=== PATIENT | female | born 1955 | race Caucasian/White ===

== ENCOUNTER 2016-06-15 15:50 | Emergency (ER) | payer OTHER ==
[~2016-06-15] VITALS: Ht 175.3 cm; Wt 113.6 kg
[2016-06-15 15:55] VITALS: TEMP 98.7
[2016-06-15] MEDS ORDERED: SYNTHROID0.088 MG/T PO (16:01)
[2016-06-15] MEDS ORDERED: ZESTRIL 10MG10 MG PO (16:02)
[2016-06-15] MEDS ORDERED: VITAMIN B COMPL1 T16 PO (16:03)
[2016-06-15] MEDS ORDERED: MULTI VITAMINS1 TAB PO (16:03)
[2016-06-15] MEDS ORDERED: FISH OIL 1000MG1 CAP PO (16:04)
[2016-06-15] MEDS ORDERED: ASPIRIN 81M81 MG/TA2 PO (16:04)
[2016-06-15] MEDS ORDERED: VITAMIN D31000 I1 PO (16:05)
[2016-06-15] MEDS ORDERED: CALCIUM/MAGNESI1 TAB (16:06)
[2016-06-15] MEDS ORDERED: MELATONIN5 M1 PO (16:07)
[2016-06-15] MEDS ORDERED: BENADRYL25 M2 PO (16:07)
[2016-06-15 17:00] LABS: BASO % 0.5 % (0.0-2.0); EOS # 0.3 (0.0-0.7); GRAN # 5.3 (1.4-6.5); GRAN % 60.1 % (42.2-75.2); HEMATOCRIT 43.8 % (37.0-47.0); HEMOGLOBIN 14.7 g/dl (12.5-16.0); LYMPH # 2.4 (1.2-3.4); LYMPH % 27.8 % (20.0-51.0); MEAN CELL VOLUME 93 fl (80.0-100.0); MEAN CORPUSCULAR HEMOGLOBIN 31 pg (27.0-31.0); MEAN CORPUSCULAR HGB CONC 34 g/dl (33.0-37.0); MEAN PLATELET VOLUME 10.9 fl (7.4-10.4); MONO # 0.7 (0.1-0.6); MONO % 8.3 % (1.7-9.3); PLATELET COUNT 220 K/mm3 (130-400); RED BLOOD COUNT 4.71 M/mm3 (4.10-5.30); REDCELL DISTRIBUTION WIDTH-CV 12.4 % (11.5-14.5); WHITE BLOOD COUNT 8.8 K/mm3 (4.8-10.8)
[2016-06-15 17:18] LABS: INR 1.1 (0.8-3.0); PARTIAL THROMBOPLASTIN TIME 31.9 SECONDS (26.0-37.0); PROTHROMBIN TIME 11.9 SECONDS (9.7-12.8)
[2016-06-15 17:48] LABS: ADJUSTED CALCIUM 9.6 mg/dL (8.4-10.2); ALANINE AMINOTRANSFERASE 57 U/L (9-52); ALBUMIN 4.7 gm/dL (3.5-5.0); ALKALINE PHOSPHATASE 67 U/L (50-136); ANION GAP 13 mmol/L (7-16); BILIRUBIN,TOTAL 0.8 mg/dL (0.0-1.0); BLOOD UREA NITROGEN 16 mg/dL (7-17); CALCIUM 10.2 mg/dL (8.4-10.2); CARBON DIOXIDE 30 mmol/L (22-30); CHLORIDE 98 mmol/L (98-107); CREATININE, serum 0.82 mg/dL (0.52-1.25); GLUCOSE 106 mg/dL (74-106); LIPASE 46 U/L (23-300); POTASSIUM 4.4 mmol/L (3.4-5.0); SODIUM 141 mmol/L (137-145); TOTAL PROTEIN 8.3 gm/dL (6.4-8.2)
[2016-06-15 18:00] LABS: B-TYPE NATRIURETIC PEPTIDE 33 pg/mL (0-125); TROPONIN-I < 0.012 ng/mL (0.000-0.034)
[2016-06-15 18:46] VITALS: BP 136/64; PULSE 66
== END 2016-06-15 19:06 | disposition home or self-care (01) ==
LOC: COL.ER 15:50
PROVIDERS: Emergency Medicine
DX: R07.9 Chest pain, unspecified (principal); I10 Essential (primary) hypertension

== ENCOUNTER → 2017-09-20 | Outpatient (CLI) | payer BC ==
[~2017-09-20] MED LIST: ASPIRIN 81M81 MG/TA2 PO; BENADRYL25 M2 PO; CALCIUM/MAGNESI1 TAB; FISH OIL 1000MG1 CAP PO; GLUCOPHAGE500 MG/TAB PO; LOPRESSOR 225 MG/TAB PO; MELATONIN5 M1 PO; MULTI VITAMINS1 TAB PO; SYNTHROID0.075 MG/T PO; SYNTHROID0.088 MG/T PO; VITAMIN B COMPL1 T16 PO; VITAMIN D31000 I1 PO; ZESTRIL 10MG10 MG PO
== END ==
LOC: MC.RAD 07:28
DX: R92.0 Mammographic microcalcification found on diagnostic imaging of breast (principal)

== ENCOUNTER 2017-09-22 08:45 | Day surgery (SDC) | payer BC ==
[2017-09-22] VITALS (9 sets, daily range): BP systolic 113–151; BP diastolic 60–86; PULSE 57–63; TEMP 97.5–97.8
[~2017-09-22] VITALS: Ht 175.4 cm; Wt 109.9 kg
[2017-09-22] MEDS ORDERED: ADVIL200 MG PO (09:44)
[2017-09-22] MEDS ORDERED: SALINE 45 ML45 ML NS (09:44)
[2017-09-22] MEDS ORDERED: [UNRECOGNIZED DRUG - OTHER] NAS (09:46)
[2017-09-22] MEDS ORDERED: [UNRECOGNIZED DRUG - OTHER] TOP (09:46)
[2017-09-22 09:47] LABS: HEMATOCRIT 45.1 % (37.0-47.0); HEMOGLOBIN 15.2 g/dl (12.5-16.0); MEAN CELL VOLUME 95 fl (80.0-100.0); MEAN CORPUSCULAR HEMOGLOBIN 32 pg (27.0-31.0); MEAN CORPUSCULAR HGB CONC 34 g/dl (33.0-37.0); MEAN PLATELET VOLUME 10.6 fl (7.4-10.4); PLATELET COUNT 242 K/mm3 (130-400); RED BLOOD COUNT 4.77 M/mm3 (4.10-5.30); REDCELL DISTRIBUTION WIDTH-CV 12.4 % (11.5-14.5)
[2017-09-22] MEDS ORDERED: MULTI VITAMINS1 TAB PO (09:47)
[2017-09-22 09:54] LABS: CREATININE, serum 0.87 mg/dL (0.52-1.25); POTASSIUM 4.4 mmol/L (3.4-5.0)
[2017-09-22 10:04] LABS: INR 1.1 (0.8-3.0); PROTHROMBIN TIME 12.1 SECONDS (9.7-12.8)
[2017-09-22] MEDS ORDERED: TOPROL XL 25MG25 MG PO (11:00)
== END 2017-09-22 13:30 | disposition home or self-care (01) ==
LOC: COL.CAR 08:45
PROVIDERS: Internal Medicine Cardiovascular Disease
DX: I47.2 Ventricular tachycardia (principal); I20.9 Angina pectoris, unspecified; I10 Essential (primary) hypertension; K21.9 Gastro-esophageal reflux disease without esophagitis; E03.9 Hypothyroidism, unspecified; E66.9 Obesity, unspecified; R00.2 Palpitations; Z79.899 Other long term (current) drug therapy; Z82.49 Family history of ischemic heart disease and other diseases of the circulatory system; Z83.3 Family history of diabetes mellitus; E78.2 Mixed hyperlipidemia
CPT/HCPCS: J1644; J2250; J3010; Q9967

== ENCOUNTER → 2017-10-05 | Outpatient (CLI) | payer BC ==
[~2017-10-05] MED LIST changes: +ADVIL200 MG PO; +SALINE 45 ML45 ML NS; +TOPROL XL 25MG25 MG PO; +[UNRECOGNIZED DRUG - OTHER] NAS; +[UNRECOGNIZED DRUG - OTHER] TOP
== END ==
LOC: MC.RAD 06:53
DX: N60.42 Mammary duct ectasia of left breast (principal); N61.0 Mastitis without abscess; N60.91 Unspecified benign mammary dysplasia of right breast

== ENCOUNTER → 2017-10-09 | Outpatient (CLI) | payer BC | LOC: SUN.DIA 09:40 | DX: E11.40 Type 2 diabetes mellitus with diabetic neuropathy, unspecified (principal); E78.5 Hyperlipidemia, unspecified; I10 Essential (primary) hypertension; E66.9 Obesity, unspecified; Z68.37 Body mass index [BMI] 37.0-37.9, adult; Z71.3 Dietary counseling and surveillance | CPT/HCPCS: G0108 ==

== ENCOUNTER → 2017-10-25 | Outpatient (CLI) | payer BC | LOC: SUN.DIA 10:21 | DX: E11.9 Type 2 diabetes mellitus without complications (principal); E78.5 Hyperlipidemia, unspecified; I10 Essential (primary) hypertension; E66.9 Obesity, unspecified; E11.40 Type 2 diabetes mellitus with diabetic neuropathy, unspecified | CPT/HCPCS: G0109 ==

== ENCOUNTER → 2017-10-26 | Outpatient (CLI) | payer BC | LOC: SUN.DIA 08:04 | DX: E11.9 Type 2 diabetes mellitus without complications (principal) | CPT/HCPCS: G0108 ==

== ENCOUNTER → 2017-11-01 | Outpatient (CLI) | payer BC | LOC: SUN.DIA 09:54 | DX: E11.9 Type 2 diabetes mellitus without complications (principal); E78.5 Hyperlipidemia, unspecified; E66.9 Obesity, unspecified; I10 Essential (primary) hypertension ==

== ENCOUNTER → 2017-11-08 | Outpatient (CLI) | payer BC | LOC: SUN.DIA 11:43 | DX: E11.40 Type 2 diabetes mellitus with diabetic neuropathy, unspecified (principal); E78.5 Hyperlipidemia, unspecified; I10 Essential (primary) hypertension; E66.9 Obesity, unspecified | CPT/HCPCS: G0109 ==

== ENCOUNTER 2018-03-06 12:06 | Day surgery (SDC) | payer BC ==
[~2018-03-06] VITALS: Ht 172.7 cm; Wt 106.6 kg
[~2018-03-06 12:06] MED LIST changes: -VITAMIN D31000 I1 PO; +VITAMIND3 5000 PO
[2018-03-06] MEDS ORDERED: TOPROL XL 25MG25 MG PO (12:32)
[2018-03-06] MEDS ORDERED: EPA FISH OIL1 SGL PO (12:34)
[2018-03-06] MEDS ORDERED: CITRACAL + D CA1 TAB PO (12:35)
[2018-03-06] MEDS ORDERED: MAGNESIUM250 M1 PO (12:36)
[2018-03-06 12:37] VITALS: BP 138/70; PULSE 70; TEMP 97.4
[2018-03-06] MEDS ORDERED: PRILOSEC 20MG20 MG PO (14:10)
[2018-03-06 14:15] VITALS: BP 123/65; PULSE 73; TEMP 98.9
[2018-03-06 14:30] VITALS: BP 112/61; PULSE 59
[2018-03-06 14:45] VITALS: BP 107/42; PULSE 61
[2018-03-06 15:00] VITALS: BP 101/61; PULSE 57
== END 2018-03-06 15:20 | disposition home or self-care (01) ==
LOC: SDCO 12:06
DX: K29.30 Chronic superficial gastritis without bleeding (principal); K59.00 Constipation, unspecified; K92.1 Melena; K64.4 Residual hemorrhoidal skin tags; I10 Essential (primary) hypertension; E03.9 Hypothyroidism, unspecified; E78.00 Pure hypercholesterolemia, unspecified; E11.42 Type 2 diabetes mellitus with diabetic polyneuropathy; Z90.49 Acquired absence of other specified parts of digestive tract; Z90.710 Acquired absence of both cervix and uterus; Z79.84 Long term (current) use of oral hypoglycemic drugs; Z79.82 Long term (current) use of aspirin; Z88.1 Allergy status to other antibiotic agents
CPT/HCPCS: J2250; J3010; J7030

== ENCOUNTER → 2018-12-06 | Outpatient (CLI) | payer MEDICARE, OTHER ==
[~2018-12-06] MED LIST changes: +CITRACAL + D CA1 TAB PO; +EPA FISH OIL1 SGL PO; +MAGNESIUM250 M1 PO; +PRILOSEC 20MG20 MG PO
== END ==
LOC: MC.RAD 09:14
DX: Z12.31 Encounter for screening mammogram for malignant neoplasm of breast (principal)

== ENCOUNTER → 2020-01-06 | Outpatient (CLI) | payer MEDICARE, OTHER | LOC: MC.RAD 09:30 | DX: Z12.31 Encounter for screening mammogram for malignant neoplasm of breast (principal) ==

== ENCOUNTER → 2021-11-15 | Outpatient (CLI) | payer MEDICARE, OTHER | LOC: MC.RAD 10:15 | DX: Z12.31 Encounter for screening mammogram for malignant neoplasm of breast (principal) ==

== ENCOUNTER → 2022-12-15 | Outpatient (CLI) | payer MEDICARE, OTHER | LOC: MC.RAD 09:15 | DX: Z12.31 Encounter for screening mammogram for malignant neoplasm of breast (principal) ==